=== PATIENT | female | born 1995 | race Caucasian/White ===

== ENCOUNTER 2020-07-06 18:13 | Emergency (ER) | payer OTHER, MEDICAID ==
[~2020-07-06] VITALS: Ht 167.6 cm; Wt 56.7 kg
[2020-07-06 18:28] VITALS: Ht 167.6 cm; Wt 56.7 kg
[2020-07-06 21:18] LABS: BASOPHIL % 0.5 % (0-2); PLATELET COUNT 264 x10^3mcL (130-400)
[2020-07-06 21:19] LABS: RED CELL DISTRIBUTION WIDTH 14.7 % (11.5-14.5)
[2020-07-06 21:38] LABS: CALCIUM 9.9 mg/dL (8.5-10.1); CARBON DIOXIDE 21.7 mmol/L (21-32); CHLORIDE SERUM 103 mmol/L (98-107); CREATININE SERUM 0.8 mg/dL (0.6-1.0); GFR1 > 60 mL/min; GLUCOSE SERUM 85 mg/dL (74-106); POTASSIUM SERUM 3.7 mmol/L (3.5-5.1); SODIUM SERUM 138 mmol/L (136-145)
[2020-07-06 21:43] LABS: ALBUMIN 4.2 g/dL (3.4-5.0); ALKALINE PHOSPHATASE 76 U/L (46-116); ALT/SGPT 20 U/L (14-59); AST/SGOT 28 U/L (15-37); BILIRUBIN TOTAL 0.4 mg/dL (0.20-1.00); TOTAL PROTEIN, SERUM 8.2 g/dL (6.4-8.2)
[2020-07-07 00:49] VITALS: BP 108/61
== END 2020-07-07 00:49 | disposition home or self-care (01) ==
LOC: EDBD 18:13 → ED 18:13
PROVIDERS: Student in an Organized Health Care Education/Training Program
DX: S92.332A Displaced fracture of third metatarsal bone, left foot, initial encounter for closed fracture (principal); S92.342A Displaced fracture of fourth metatarsal bone, left foot, initial encounter for closed fracture; S20.212A Contusion of left front wall of thorax, initial encounter; S10.91XA Abrasion of unspecified part of neck, initial encounter; S80.211A Abrasion, right knee, initial encounter; V49.49XA Driver injured in collision with other motor vehicles in traffic accident, initial encounter; Y93.I9 Activity, other involving external motion; Y92.488 Other paved roadways as the place of occurrence of the external cause; Y99.8 Other external cause status
CPT/HCPCS: 90715; J1885; J3010; J7030; Q9967